=== PATIENT | male | born 1945 | race American Indian/Alaskan Native ===

== ENCOUNTER 2018-06-17 07:48 | Outpatient (CLI) | payer MEDICARE ==
[2018-06-17] MEDS ORDERED: XYLOCAINE TOPICAL 4% TP ONE (08:20)
== END 2018-06-17 07:49 | disposition home or self-care (01) ==
LOC: WOUND 07:48
PROVIDERS: ATTEND Surgery
DX: T81.89XD Other complications of procedures, not elsewhere classified, subsequent encounter (principal); J44.9 Chronic obstructive pulmonary disease, unspecified; R41.3 Other amnesia; H40.9 Unspecified glaucoma; Z98.49 Cataract extraction status, unspecified eye; Z87.891 Personal history of nicotine dependence; Z85.72 Personal history of non-Hodgkin lymphomas; Y83.8 Other surgical procedures as the cause of abnormal reaction of the patient, or of later complication, without mention of misadventure at the time of the procedure
CPT/HCPCS: 11042; 11045; 97605; G0463; 99215

== ENCOUNTER 2018-06-19 14:02 | Outpatient (CLI) | payer MEDICARE | END 2018-06-19 14:03 | disposition home or self-care (01) | LOC: WOUND 14:02 | CPT/HCPCS: 97605 ==

== ENCOUNTER 2018-06-23 10:20 | Outpatient (CLI) | payer MEDICARE ==
[2018-06-23] MEDS ORDERED: SILVER NITRATE TP ONE (11:24)
[2018-06-23] MEDS ORDERED: XYLOCAINE TOPICAL 4% TP ONE (11:24)
== END 2018-06-23 10:21 | disposition home or self-care (01) ==
LOC: WOUND 10:20
PROVIDERS: ATTEND Surgery
DX: T81.89XD Other complications of procedures, not elsewhere classified, subsequent encounter (principal); H40.9 Unspecified glaucoma; J44.9 Chronic obstructive pulmonary disease, unspecified; Z85.72 Personal history of non-Hodgkin lymphomas; Z87.891 Personal history of nicotine dependence; Y83.8 Other surgical procedures as the cause of abnormal reaction of the patient, or of later complication, without mention of misadventure at the time of the procedure
CPT/HCPCS: 97605

== ENCOUNTER 2018-06-26 13:36 | Outpatient (CLI) | payer MEDICARE | END 2018-06-26 13:37 | disposition home or self-care (01) | LOC: WOUND 13:36 | CPT/HCPCS: 97605 ==

== ENCOUNTER 2018-06-30 10:26 | Outpatient (CLI) | payer MEDICARE ==
[2018-06-30] MEDS ORDERED: XYLOCAINE TOPICAL 4% TP ONE (11:34)
[2018-06-30] MEDS ORDERED: SILVER NITRATE TP ONE (11:38)
== END 2018-06-30 10:27 | disposition home or self-care (01) ==
LOC: WOUND 10:26
PROVIDERS: ATTEND Surgery
DX: T81.89XD Other complications of procedures, not elsewhere classified, subsequent encounter (principal); H40.9 Unspecified glaucoma; J44.9 Chronic obstructive pulmonary disease, unspecified; Z85.72 Personal history of non-Hodgkin lymphomas; Z87.891 Personal history of nicotine dependence; Y83.8 Other surgical procedures as the cause of abnormal reaction of the patient, or of later complication, without mention of misadventure at the time of the procedure

== ENCOUNTER 2018-07-07 10:32 | Outpatient (CLI) | payer MEDICARE ==
[2018-07-07] MEDS ORDERED: XYLOCAINE TOPICAL 4% TP ONE (10:46)
[2018-07-07] MEDS ORDERED: SILVER NITRATE TP ONE (10:48)
== END 2018-07-07 10:33 | disposition home or self-care (01) ==
LOC: WOUND 10:32
PROVIDERS: ATTEND Surgery
DX: T81.89XD Other complications of procedures, not elsewhere classified, subsequent encounter (principal); H40.9 Unspecified glaucoma; J44.9 Chronic obstructive pulmonary disease, unspecified; Z85.72 Personal history of non-Hodgkin lymphomas; Z87.891 Personal history of nicotine dependence; Y83.8 Other surgical procedures as the cause of abnormal reaction of the patient, or of later complication, without mention of misadventure at the time of the procedure
CPT/HCPCS: 17250

== ENCOUNTER 2018-07-14 10:27 | Outpatient (CLI) | payer MEDICARE ==
[2018-07-14] MEDS ORDERED: XYLOCAINE TOPICAL 2% 5ML TP ONE (10:57)
== END 2018-07-14 10:28 | disposition home or self-care (01) ==
LOC: WOUND 10:27
PROVIDERS: ATTEND Surgery
DX: T81.89XD Other complications of procedures, not elsewhere classified, subsequent encounter (principal); H40.9 Unspecified glaucoma; J44.9 Chronic obstructive pulmonary disease, unspecified; Z85.72 Personal history of non-Hodgkin lymphomas; Z87.891 Personal history of nicotine dependence; Y83.8 Other surgical procedures as the cause of abnormal reaction of the patient, or of later complication, without mention of misadventure at the time of the procedure
CPT/HCPCS: 99213; G0463